=== PATIENT | male | born 1990 | race Two or more races ===

== ENCOUNTER 2017-01-04 23:45 | Emergency (ER) | payer SELFPAY ==
--- NOTE | 2017-01-05 01:40 | ED Physician Chart ---
Chief Complaint/HPI - Patient Information Date Seen:: 01/05/17 Time Seen:: 00:00 Chief Complaint:: Right Ankle Injury History of Present Illness:: onset x 12 hours of Right Ankle/Foot pain after a twisting type injury 12 hours ago; no paresthesias, weakness, or gait changes; no other injuries; no LOC, ALOC , Syncope,vertigo,H/As,neck pain, C/P, SOB, Abd. pain, or urinary s/s; pt's last tetanus shot: < 5 years; UTD Allergies:: Allergies Allergy/AdvReac Type Severity Reaction Status Date / Time No Known Allergies Allergy Verified 01/05/17 00:34 Vitals:: Vital Signs - 8 hr 01/05/17 00:00 Temp 97.9 F HR 68 RR 18 BP 110/74 O2 Sat % 97 Historian:: Patient Review:: Nurse's Note Reviewed Review of Systems - Review of Systems General/Constitutional: No fever, No chills, No weight loss, No weakness, No diaphoresis, No edema, No loss of appetite Skin: No skin lesions, No rash, No bruising Head: No headache, No light-headedness Eyes: No loss of vision, No pain, No diplopia ENT: No earache, No nasal drainage, No sore throat, No tinnitus Neck: No neck pain, No swelling, No thyromegaly, No stiffness, No mass noted Cardio Vascular: No chest pain, No palpitations, No PND, No orthopnea, No edema Pulmonary: No SOB, No cough, No sputum, No wheezing GI: Nausea, Vomiting, Diarrhea, No pain, No melena, No hematochezia, Constipation, No hematemesis G/U: No dysuria, No frequency, No hematuria Musculoskeletal: Bone or joint pain, No back pain, Muscle pain Endocrine: No polyuria, No polydipsia Psychiatric: No prior psych history, No depression, No anxiety, No suicidal ideation Hematopoietic: No bruising, No lymphadenopathy Allergic/Immuno: No urticaria, No angioedema Neurological: No syncope, No focal symptoms, No weakness, No paresthesia, No headache, No seizure, No dizziness, No confusion, No vertigo Past Medical History - Past Medical History Obtainable: Yes Past Medical History: No significant medical hx Family History: HTN Social History: Non Smoker, No Alcohol, No Drug Use, Single Surgical History: Hernia Psychiatricy History: None Medication: Reviewed Family Medical History - Family Member Mother History Unknown: Yes Ethnicity: Living Status: Still Living Hx Family Cancer: No Hx Family Coronary Artery Disease: No Hx Family Congestive Heart Failure: No Hx Family Hypertension: No Hx Family Stroke: No Hx Family Diabetes: Yes Hx Family Seizures: No Hx Family Dementia: No Hx Family AIDS: No Hx Family HIV: No Hx Family COPD: No Hx Family Hepatitis: No Hx Family Psychiatric Problems: No Hx Family Tuberculosis: No Physical Exam - Physical Examination General/Constitutional: Awake, Well-developed, well-nourished, Alert, No distress, GCS 15, Non-toxic appearing, Ambulatory Head: Atraumatic Eyes: Lids, conjuctiva normal, PERRL, EOMI Skin: Nl inspection, No rash, No skin lesions, No ecchymosis, Well hydrated, No lymphadenopathy ENMT: External ears, nose nl, Nasal exam nl, Lips, teeth, gums nl Neck: Nontender, Full ROM w/o pain, No JVD, No nuchal rigidity, No bruit, No mass, No stridor Respiratory: Nl effort/Exclusion, Clear to Auscultation, No Wheeze/Rhonchi/Rales Cardio Vascular: RRR, No murmur, gallop, rubs, NL S1 S2 GI: No tenderness/rebounding/guarding, No organomegaly, No hernia, Normal BS's, Nondistended, No mass/bruits, No McBurney tenderness : No CVA tenderness Extremities: No tenderness or effusion, Full ROM, normal strength in all extremities, No edema, Normal digits & nails Other Extremities comments:: Right Ankle and Right Foot: mild tenderness; no loss of ROMs; no ligament instability; good motor, tendon, and sensory functions; Gait: WNL; good NV functions Neuro/Psych: Alert/oriented, DTR's symmetric, Normal sensory exam, Normal motor strength, Judgement/insight normal, Mood normal, Normal gait, No focal deficits Misc: normal gait, Normal back, No paraspinal tenderness Labs/Radiology/EKG Results - Radiology Results Results: Unremarkable; no Fx ED Septic Shock - . Is Septic Shock (SBP<90, OR Lactate>4 mmol\L) present?: No - <6hrs of presentation: Vital Signs: Vital Signs - 8 hr 01/05/17 00:00 Temp 97.9 F HR 68 RR 18 BP 110/74 O2 Sat % 97 Reassessment (Disposition) - Reassessment Reassessment:: pt is comfortable upon discharge Reassessment Condition:: Improved - Diagnosis Diagnosis:: Right Ankle Sprain; Right Foot Sprain; Possible Occult Fracture; Sprains and Strains - Aftercare/Follow up Instructions Aftercare/Follow-Up Instructions:: Counseled pt regarding lab results/diagnosis & need follow up, Refer to Discharge Instructions, Counseled pt & family regarding lab results/diagnosis & need follow up - Patient Disposition Discharge/Transfer:: Home Condition at Disposition:: Stable, Improved (RTER prn if existing s/s reoccur and/or get worse and/or any other new s/s occur; X-Rays Instructions; ACIs given for all above Dx; Refer to Orthopedist DANNIE; F/U with PMD in one day or prn; RTER prn if concerned)
--- NOTE | 2017-01-05 10:37 | Diagnostic Imaging Report ---
Exam: Right ankle 3 views. HISTORY: Pain Findings: Multiple views of right ankle reviewed. The study demonstrates no evidence of fracture dislocation of soft tissue swelling. IMPRESSION: Normal examination right ankle joint.
--- NOTE | 2017-01-05 10:39 | Diagnostic Imaging Report ---
Exam: Right foot. 3 views HISTORY: Pain Findings: Multiple views of right foot reviewed. The study demonstrates no evidence of fracture dislocation of soft tissue swelling. Impressio: Normal examination right foot.
== END 2017-01-05 02:00 | disposition home or self-care (01) ==
LOC: ER 23:45
DX: S93.401A Sprain of unspecified ligament of right ankle, initial encounter (principal); S93.601A Unspecified sprain of right foot, initial encounter; X58.XXXA Exposure to other specified factors, initial encounter; Y93.89 Activity, other specified; Y92.89 Other specified places as the place of occurrence of the external cause; Y99.8 Other external cause status
CPT/HCPCS: 73600-TC-RT; 73630-TC-RT; Z7502